=== PATIENT | female | born 1960 | race Caucasian/White ===

== ENCOUNTER 2018-10-03 06:55 | Emergency (ER) | payer OTHER ==
[~2018-10-03] VITALS: Ht 160 cm; Wt 59.9 kg
== END 2018-10-03 09:57 | disposition home or self-care (01) ==
LOC: ER 06:55
DX: S76.012A Strain of muscle, fascia and tendon of left hip, initial encounter (principal); X50.0XXA Overexertion from strenuous movement or load, initial encounter; Y93.89 Activity, other specified; Y92.89 Other specified places as the place of occurrence of the external cause; Y99.8 Other external cause status

== ENCOUNTER 2019-06-04 10:55 | Emergency (ER) | payer OTHER ==
[~2019-06-04] VITALS: Ht 162.6 cm; Wt 59.0 kg
[2019-06-04] MEDS ORDERED: PROMETH-CODEIN 65 ML PO (16:24)
[2019-06-04] MEDS ORDERED: MUCINEX1200 MG PO (16:24)
== END 2019-06-04 17:37 | disposition home or self-care (01) ==
LOC: ER 10:55
DX: J45.998 Other asthma (principal)